=== PATIENT | female | born 1955 | race Caucasian/White ===

== ENCOUNTER 2023-03-04 10:46 | Outpatient (CLI) | payer MEDICARE, BC, SELFPAY | END 2023-03-04 10:47 | disposition home or self-care (01) | PROVIDERS: PCP Family Medicine; Visit Provider Physician Assistant | DX: R10.9 Unspecified abdominal pain (principal); R30.0 Dysuria | CPT/HCPCS: 80076; 83690; 87086 ==

== ENCOUNTER 2024-09-19 08:30 | Outpatient (RCR) | payer MEDICARE, BC, SELFPAY | END 2024-10-21 10:40 | disposition home or self-care (01) | PROVIDERS: PCP Family Medicine; Visit Provider Podiatrist | DX: M25.572 Pain in left ankle and joints of left foot (principal); M76.822 Posterior tibial tendinitis, left leg; Z51.89 Encounter for other specified aftercare; M62.462 Contracture of muscle, left lower leg | CPT/HCPCS: 97110; 97112; 97140; 97162 ==

== ENCOUNTER 2025-09-28 16:56 | Emergency (ER) | payer MEDICARE, BC, SELFPAY ==
--- OUTSIDE RECORDS SUMMARY | 2025-09-28 16:58 | XMS_ITS | Clinical Summary ---
Author Organization [id number] Address [address] [place] [address] Care Team Providers Care Prototype Fabricator Name Role Phone Brooke, Elsy Gold MD Primary Care Provider Allergies No known active allergies Medications MedicationSigDispense QuantityRefillsLast FilledStart DateEnd DateStatus MULTIVITAMIN CAP Take 1 Capsule by mouth once daily.0Active aspirin (ECOTRIN) 81 mg enteric coated tablet Take 1 tablet by mouth once daily with a meal.ctive omega-3 fatty acids-vitamin E (FISH OIL) 1,000 mg cap Take 1 Capsule by mouth once daily.ctive blood-glucose meter (BLOOD GLUCOSE MONITORING) Indications:Type 2 diabetes mellitus without complication, without long-term current use of insulin (HC)Dispense meter, test strips, lancets covered by pt ins. Contour 1 Device 04/20/2017Active lancets (Accu-Chek Multiclix Lancet) Indications:Diabetes mellitus without complication (HC)Dispense item covered by pt ins. E11.9 IDDM type II - Test 1 times/day. 100 Each ctive fluticasone (50 mcg per actuation) nasal solution (FLONASE) Indications:Environmental allergiesInhale 2 Sprays into affected nostril(s) once daily. 48 g 1105Active pen needle (UltiCare Pen Needle) 31 gauge x 5/16 (disposable insulin pen needle) Indications:Type 2 diabetes mellitus without complication, without long-term current use of insulin (HC)For administering insulin at home. 100 Each 5Active blood sugar diagnostic (Contour Next Test Strips) strip Indications:Type 2 diabetes mellitus without complication, without long-term current use of insulin (HC)As directed. TEST 3 TIMES DAILY, high A1C 300 Each 5Active ergocalciferol ((vitamin D2)) 50,000 unit capsule Indications:S/P cervical spinal fusionTake 1 Capsule (50,000 units) by mouth once weekly. 12 Capsule 5Active metFORMIN (GLUCOPHAGE) 500 mg tablet Indications:Type 2 diabetes mellitus without complication, with long-term current use of insulin (HC)Take 2 Tablets (1,000 mg) by mouth two times daily with meals. 360 Tablet 5Active metoprolol tartrate (LOPRESSOR) 50 mg tablet Indications:Essential hypertensionTake 1 Tablet (50 mg) by mouth two times daily. 180 Tablet 5Active simvastatin (ZOCOR) 10 mg tablet Indications:Mixed hyperlipidemiaTake 1 Tablet (10 mg) by mouth once daily in the evening. Wait until they call for this. 90 Tablet 5Active melatonin 10 mg tab Take 10 mg by mouth at bedtime.Active calcium citrate/vitamin D3 (CITRACAL REGULAR ORAL) Take 200 mg by mouth once daily.Active lactobacillus combination no.4 (Probiotic) 3 billion cell cap Take 1 Capsule by mouth once daily.Active magnesium oxide (MAG-OX 400) 400 mg tablet Take 400 mg by mouth once daily.Active acetaminophen (TYLENOL EXTRA STRGTH) 500 mg tablet Indications:Post-op painTake 2 Tablets (1,000 mg) by mouth every 6 hours. Max acetaminophen dose: 4000mg in 24 hrs. 115 Tablet 04/30/2025 12:08 PM CDT5Active pregabalin (LYRICA) 25 mg capsule Indications:Restless leg syndromeTake 1 Capsule (25 mg) by mouth at bedtime. Also takes a 50mg capsule at suppertime - total eveningdose =75 mg 90 Capsule 5Active traMADoL (ULTRAM) 50 mg tablet Indications:Spinal stenosis, lumbar region, without neurogenic claudicationTake 1-2 Tablets (50-100 mg) by mouth every 12 hours if needed for Pain. 60 Tablet 5Active calcium citrate (CITRACAL) 200 mg (950 mg) tablet Take 950 mg by mouth two times daily with meals.5Active CPAP Indications:Obstructive sleep apnea syndromeRESMED CPAP (E0601) machine for home use at pressure: 8 cmw, Choice of mask (A7030 or A7034) w/fullface cushion (A7031) x1/mo, nasal cushion (A7032) x2/mo, or nasal pillows (A7033) x 2/mo; Length ofNeed: 99 months; Frequency of use: Daily 1 Each 5Active pregabalin (LYRICA) 50 mg capsule Indications:Restless leg syndromeTake 50 mg by mouth once daily with evening meal. Also takes a 25 mg Capsule at bedtime (total evening dose = 75 mg) 90 Capsule 5Active lisinopriL (PRINIVIL; ZESTRIL) 40 mg tablet Indications:Essential hypertensionTake 1 Tablet (40 mg) by mouth once daily. 90 Tablet 5Active lisinopril-hydrochlorothiazide 20-12.5 mg tablet (PRINZIDE) Indications:HTN (hypertension)Take 1 Tablet by mouth once daily. 90 Tablet Discontinued(Reorder (E-cancel not sent)) insulin glargine (U-100) (Lantus U-100 Insulin) 100 unit/mL injection Inject 15 units subcutaneous before bedtime. Product desired: IABGNG0709/15/2025 Discontinued(*Med complete/Regimen complete/Level of care change) pregabalin (LYRICA) 50 mg capsule Take 50 mg by mouth once daily with evening meal. Also takes a 25 mg Capsule at bedtime (total evening dose = 75 mg)09/10/2025Discontinued(Reorder (E-cancel not sent)) lisinopril-hydrochlorothiazide 20-12.5 mg tablet (PRINZIDE) Indications:HTN (hypertension)Take 2 Tablets by mouth once daily. 180 Tablet Discontinued(*Allergic/Adverse Rxn/Side Effects) Active Problems ProblemNoted DateDiagnosed DateDM2 (diabetes mellitus, type 2)05/05/2025OSA (obstructive sleep apnea)05/05/20256066Kjuxzpdkmtca46/28/2025S/P cervical spinal kgwcyf6105/05/2025Stenosis of cervical spine with ghgttipjco67/21/2025Paroxysmal evemxqcoxiz22/16/2025Type 2 diabetes mellitus with hyperglycemia, with long-term current use of zbvufub7302/28/2024Essential ccntifzmabpf08/19/2019Routine adult health mcvbxqzegfs44/31/2018 Overview (06/08/2018): Colonoscopy 05/2018 normal biopsy, repeat in 10 years ILENE 12/06/2010 AHI-22, elevated in REM09/18/2017Abnormal vaginal bleeding 08/05/2016Type 2 diabetes mellitus without xwyolstbfefk46/29/2016 Overview (07/18/2025): Diagnosis Code replaced due to regulatory update Mixed truvvlqzglcrok18/24/2009Severe Spinal Stenosis at L4-506 Overview (11/01/2019): She takes Tramadol and her insurance will only allow her to get 28 Tramadol at a time. She typically uses 12 Tramadol per month as of 11/01/2019. Sleep disturbance, ojwzgmilzab25/28/2007nxiety state, bonkvsignmq70/28/2007Type II or unspecified type diabetes mellitus without mention of complication, not stated as lrsrzhdurwiz19/15/2006Paroxysmal supraventricular tachycardia Encounters DateTypeDepartmentCare BbpvUvqszjymqxi53/12/2025Telephone [facility] [address] [place] [address] Neal De Leon MD 09/18/2025 8:30 AM CSTProcedure Only [facility] [address] [place] [address] Yu Cardozo L Ac Rvsgtfyheff37/11/6935Uqjqzu16/09/2025 9:25 AM CSTAncillary Procedure [facility] [address] [place] [phone] 09/16/2025 8:30 AM CSTOffice Visit [facility] [address] [place] [address] Neal De Leon MD Recheck (Low back pain )09/16/2025 8:15 AM CSTAncillary Procedure [facility] [place] [address] [place] [address] 09/16/2025 8:00 AM CSTAncillary Procedure [facility] [address] [place] [phone] 09/16/20250832Ekxaos60/08/2025 9:55 AM CSTOffice Visit [facility] [address] [place] [address] Elsy Cox MD Pre-Op Exam (10/13/2025 Hysteroscopy/D&C [place] Dr. Bety Mahoney); Medication Management (Would likea CGM. Has been taking lantus as needed due to 40 # WT loss her diabetes has improved. Was also wondering about metformin)09/15/2025 Results Follow-Up [facility] [address] [place] [address] Elsy Cox MD 09/14/20259700Bcixec79/24/2025Refill [facility] [address] [place] [address] Ash Wallace MD Refill Request (Pregabalin/)08/28/2025 1:45 PM CSTAncillary Procedure [facility] [address] [place] [address] 08/28/2025 10:00 AM CSTProcedure Only [facility] [address] [place] [address] Yu Cardozo L Ac Khvfdolicjb50/20/2025Telephone [facility] [address] [place] [address] Irene Mahoney MD Results (I spoke with Ely, explained EMB results with benign polyp, pelvic US with EMS 6mm. I recommended D&C hysteroscopy, she is agreeable. )08/28/2025 Fdjhtm4808/23/20258288Sdsazp39/13/2025 2:20 PM CSTOffice Visit [facility] [address] [place] [address] Irene Mahoney MD Consult (postmenopausal bleeding. Hx of ovarian and polyps removal)08/21/2025 Mstxcy2508/15/2025 9:30 AM CSTAncillary Procedure [facility] [address] [place] [address] 08/15/20253149Fxfvng03/06/2025 1:30 PM CSTOffice Visit [facility] [address] [place] [address] Ash Wallace MD Sleep Follow-up08/14/2025Orders Only [facility] Scanner 1 scan: (1-Ord) HOSSEIN , COMPLIANCE REPORT, 5110/14/20248138Kqtplb05/04/2025 Udktbk7008/11/2025 8:30 AM CSTProcedure Only [facility] [address] [place] [address] Yu Cardozo L Ac Mjmdkhyhvft01/03/0575Oqklqa50/01/2348Pxnfpw40/30/4369Qyokpl27/29/2025 9:00 AM CDTProcedure Only [facility] [address] [place] [address] Yu Cardozo L Ac Lkqcshgtjpk64/28/2025 1:30 PM CDTOffice Visit [facility] [address] [place] [phone] Chandana Ordaz PA Post-op (Cervical and injection )08/05/2025 1:15 PM CDTAncillary Procedure [facility] [address] [place] [phone] 08/05/20254376Ehmxwm47/24/6893Cmdgak78/23/9544Rdwxuc32/22/2025 2:10 PM CDTOffice Visit [facility] [address] [place] [address] Monique Lynch MD Derm Problem (Patch)07/30/2025 9:00 AM CDTProcedure Only [facility] [address] [place] [address] Yu Cardozo L Ac Plpwcgdhyjp52/22/4329Bofdaj69/21/1838Drkkkw52/20/0723Xkyawa13/15/2025 8:00 AM CDTProcedure Only [facility] [address] [place] [address] Yu Cardozo L Ac Acupuncture (Initial treatment.)07/23/20250430Xfqewn58/13/2025Orders Only [facility] Scanner 1 scan: (1-Ord) RAYUS, INJ LT TROCHANTERIC BURSA, 510/08/2025Travel 07/04/2025Orders Only [facility] Scanner 1 scan: (1-Ord) RAYUS RADIOLOGY, INJ L1-2 LUMBAR , 07/04/2025from Last 3 Months Immunizations ImmunizationAdministration DatesNext DueAMB INFLUENZA, IIV4 (AGE=>6MOS) MDV (Flu Clinic Only)07/10/2017COVID-19 VACCINE SPIKEVAX (MODERNA 50MCG/0.5ML) 12YO+ PFS 3COVID-19 vaccine (Pfizer-BioNTech 30mcg/0.3mL) PF, MDV12/28/2020, 12/04/2020Influenza A (H1N1), Inactivated (Age >=3 Years)09/25/2009Influenza Virus, Qbrfxpwnzfv06/23/2014,07/18/2013,07/17/2012,07/19/2011,08/11/2009 Influenza, High-dose Rmaqxhoeieu44/09/2025,06/13/2024Influenza, High-dose Quadrivalent Teamlpqxize42/13/2023,07/01/2021Influenza, IIV3 (Age >=3 years) 07/18/2013Influenza, FWA253/,07/15/2016Influenza, IIV4 (=>6mos) MDV 07/18/2019,07/10/2018Influenza, Inactivated AIIV4 (Age 65+ Years) Preserv Free 2Pneumococcal Poly,23-Valent (Pneumovax)2Pneumococcal conj 13- Valent (Prevnar 13)1RSV, Recombinant ADJ Reconstituted (Arexvy 120MCG/0.5mL)06/21/2023Td (Age >=7 Years)03/09/2006Tdap07/04/2022,04/07/2012, 03/09/2006Zoster (Shingrix-RZV, recombinant)05/23/2018,02/05/2018Zoster (Zostavax-ZVL, live)08/19/2014 Family History Medical HistoryRelationNameCommentsHeart DiseaseBrother 1aneurysm, 60 OsteoarthritisBrother 1Cancer-prostateBrother 2OsteoarthritisBrother 2Asthma DaughterCancer-prostateFatherHypertensionFatherOsteoarthritisFatherOsteoporosis FatherStrokeFatherDiabetesMotherHeart failureMotherHypertensionMotherObesity MotherCancer-prostatePaternal GrandfatherCancer-fcixjrLxqvlay7RtvioefkDyebhp ObesitySisterAsthmaSonCancer-ovarianNo Family HistoryRelationNameStatusComments Brother 1Brother 2DaughterFatherDeceasedMaternal GrandfatherDeceasedMaternal GrandmotherDeceasedMotherDeceased (Age 71)CHF, complications diabetesPaternal GrandfatherDeceasedPaternal GrandmotherDeceasedSisterSon Social History Tobacco UseTypesPacks/DayYears UsedDateSmoking Tobacco: FormerCigarettes0.545 09/08/1965 - 09/08/2010Smokeless Tobacco: Never Tobacco Cessation:Counseling Given: Yes Alcohol UseStandard Drinks/WeekCommentsNo0 (1 standard drink = 0.6 oz pure alcohol)PHQ-2AnswerDate RecordedPHQ-2 TOTAL ECMHZ633Social Connections AnswerDate RecordedDo you often feel lonely or isolated from those around you?0 04/28/2025Financial Resource StrainAnswerDate RecordedDifficulty of Paying Living Rsjdbkjq403/11/2025Difficulty of Paying Living ExpensesNot on file 04/18/2025Food InsecurityAnswerDate RecordedDo you worry your food will run out before you are able to buy more?Transportation NeedsAnswerDate RecordedDoes lack of transportation keep you from medical appointments?1 04/28/2025Does lack of transportation keep you from work, meetings or getting things that you need?Housing StabilityAnswerDate RecordedWhat is your housing situation today?Interpersonal SafetyAnswerDate RecordedAre you being hit, kicked, pushed or yelled at (see row info)?No04/28/2025 Interpersonal Safety Abuse 12 - 18Not on file04/28/2025Interpersonal Safety Ambulatory VulnerabilityNot on file04/28/2025UtilitiesAnswerDate RecordedDo you have trouble paying for utilities (for example, heat, electricity, water, phone)?CommentsNoSex and Gender InformationValueDate Recorded Sex Assigned at BirthNot on fileLegal LtwWekvsp42/14/2013 6:31 AM CSTGender IdentityNot on fileSexual OrientationNot on fileOccupationIndustryJob Start Date Job End DateNot on fileNot on fileNot on fileNot on file Obstetrics History GravidaParaTermPretermABIABSABEctopicMultipleLivingLive [id number] OutcomeGATotal LaborLabor/2nd/0cqMaxnmyBvnEsmzFrmzDGALzqO0Y1QldfCbgfSYN4h7c IZQROHUJCDY12/01/4330UzutXMhcIwrxoa09/29/0083VssjUTduNjytpu41/18/1983TermMVag Living Last Filed Vital Signs Vital SignReadingTime TakenCommentsBlood Mxfmhush637/5012 9:59 AM 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 Tqytg5404 9:59 AM LZSRggqgcohejf45.7 ??C (98 ??F)05/06/2025 7:31 AM CDT Respiratory Yyvl301105/06/2025 7:31 AM CDTOxygen Paxwhhftsn112%09/15/2025 9:59 AM CSTInhaled Oxygen Concentration--Sujmqg61.7 kg (169 lb)09/16/2025 12:19 PM 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 Zmghtc761.1 cm (5' 5)09/16/2025 12:19 PM CSTBody Mass Index28.12111/17/2024 12:19 PM 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 Plan of Treatment DateTypeDepartmentCare Team (Latest Contact Info)Dzkgfdnpevf52/30/2025 8:45 AM CSTOrders Only [facility] [address] [place] [address] [place], [place] 10/13/2025 9:27 AM CSTHospital Encounter [address] [address] [place] [address] [address] 10/13/2025 9:27 AM 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 - 10/13/2025 10:26 AM CSTSurgery [address] [address] [place] [address] [address] HYSTEROSCOPY OPERATIVE DILATION AND CUREATTAGE WITH EWRMWCRP75/08/2026 9:30 AM CSTAppointment [facility] [address] [place] [address] Papo Salinas, PT [address] [place] [address] 08/03/2026 2:20 PM CDTOffice Visit [facility] [address] [address] [place] [address] [place] [address] NamePriorityAssociated DiagnosesDate/TimeHYSTEROSCOPY DILATION AND CURETTAGETier 2: within 30 days Postmenopausal bleeding Endometrial polyp 10/13/2025 9:27 AM CSTHealth MaintenanceDue DateLast DoneCommentsCOVID-19 vaccine series (2024- season)/02/2024, 08/16/2023, 07/22/2022, Additional history existsDepression screening for age 12+/, 03/13/2024, 02/28/2024, Additional history existsMedicare Wellness for age 65+ , 02/28/2024, 12/15/2022Mammogram for age 45-75006/19/2026 06/19/2025, 06/19/2024, 06/01/2023, Additional history existsLow Dose CT (for lung CA) age 50-/04/2025, 08/14/2024, 07/26/2023, Additional history existsBMI (ht and wt on same day) for age 18+/06/2025, 08/14/2025, 06/18/2025, Additional history existsColonoscopy through age 75 , 06/07/2018, [facility]17[facility]2010 [facility] Lipids for age 45-, 02/22/2024, 07/04/2022, Additional history existsTetanus , 04/07/2012, 03/09/2006, Additional history existsZoster (shingles) series for age 50+Completed 05/23/2018, 02/05/2018, 08/19/2014DEXA/DXA scan for age 65+Wcjdrvqri29/11/2021, 12/17/2020Hepatitis C screening for age 18-38Pdwyitavl25/17/2022neumococcal series for age 50+Dxxtfqlbm09/17/2022, 01/23/2021RSV vaccine for adults or kntemukgkTxqcaehwa63/13/2023Influenza XnjnbboYhskgfmrl82/09/2025, 06/13/2024, 07/04/2022, Additional history existsHepatitis B series for 19+Aged OutNo longer eligible based on patient's age to complete this topic Goals GoalPatient Goal TypeAssociated ProblemsRecent ProgressPatient-Stated?Author Autogenerated Goal Care PlanAutogenerated ProblemNoTorres, Tejal Montero, [facility] Medical Devices ImplantedTypeAreaManufacturerDevice IdentifierShelf Expiration DateModel / Serial / LotBone Matrix 2.5x5cm Dmitriy Plf [facility] - [id number] Implanted:Qty: 1 on 03/05/2021 by Neal De Leon MD at [employer] N/A: Lumbar VertebraeMedtronic Spine/Ortho02/04/2024T42210 / [id number] / -Description:IMPLANTED ANTERIOR /POSTERIOR L4-5Cage Lmbr [id number] [address] Alif Peek - [id number] Implanted:Qty: 1 on 03/05/2021 by Neal De Leon MD at [employer] N/A: Lumbar WldfcmrehCX-Xdjzz7634-1629 / / -Description:Implanted anterior L3-L56.5x 50 Poly Screw Implanted:Qty: 1 on 03/05/2021 by Neal De Leon MD at [employer] N/A: Lumbar VertebraeGlobus Medical Tcy5443.1650 / / 7.5 X 55 Poly Screw Implanted:Qty: 1 on 03/05/2021 by Neal De Leon MD at [employer] N/A: Lumbar VertebraeGlobus Medical Ini3099.1755 / / 5.5x 75 Ti Pre Bent Krishna Implanted:Qty: 1 on 03/05/2021 by Neal De Leon MD at [employer] N/A: Lumbar VertebraeGlobus Medical Eii2731.5075 / / Creo Locking Screw Implanted:Qty: 2 on 03/05/2021 by Neal De Leon MD at [employer] N/A: Lumbar VertebraeGlobus Medical Rlo0166.0000 / / Cygnus Matrix Amnion Patch Implanted:Qty: 1 on 03/05/2021 by Neal De Leon MD at [employer] N/A: Lumbar VertebraeS-VIVEX BIOLOG[employer] INC/6878WEF298421V / [id number] / 4.5 X 30mm Threaded Facet Screw Cannulated Implanted:Qty: 2 on 03/05/2021 by Neal De Leon MD at [employer] N/A: Lumbar VertebraeDio Medical CorpFT.TC.4530 / / Bone Matrix Lg Infuse Bmp - [id number] Implanted:Qty: 1 on 03/05/2021 by Neal De Leon MD at [employer] N/A: Lumbar VertebraeMedtronic Spine/Ortho05/09/[id number] / / [id number]:IMPLANTED ANTERIOR /POSTERIOR L4-5Gore Preclude Pericardial Membrane Implanted:Qty: 1 on 03/05/2021 by Neal De Leon MD at [employer] N/A: [facility] HospitalW- [id number] / / [id number] 24mm Citadel Plate Implanted:Qty: 2 on 03/05/2021 by Neal De Leon MD at [employer] N/A: Lumbar VertebraeGlobus Medical Apy897.124 / / Description:Implanted anterior L3-S9Qlvqpq 24mm Citadel Screw Implanted:Qty: 2 on 03/05/2021 by Neal De Leon MD at [employer] N/A: Lumbar VertebraeGlobus Medical Fne202.624 / / Description:Implanted anterior L3-L530mm Citadel Screw Globus Implanted:Qty: 2 on 03/05/2021 by Neal De Leon MD at [employer] N/A: Lumbar VertebraeGlobus Medical Fkc924.630 / / Description:Implanted anterior L3-I9Reqfkg 28mm Citadel Screw Implanted:Qty: 2 on 03/05/2021 by Neal De Leon MD at [employer] N/A: Lumbar VertebraeGlobus Medical Juv564.628 / / Description:Implanted anterior L3-G5Jjuyau 26mm Citadel Screw Implanted:Qty: 2 on 03/05/2021 by Neal De Leon MD at [employer] N/A: Lumbar Lqlwapsjm592.626 / / Description:Implanted anterior L3-L5Cage Lmbr 49w33u66uk 4 [address] Sivan Del [place] - [id number] Implanted:Qty: 1 on 03/05/2021 by Neal De Leon MD at [employer] N/A: Lumbar YewkoivkyYP-Odjwb5377-5868 / / -Description:Implanted anterior L3-L54.5 X 25 Mm Threaded Facet Screw Cannulated Implanted:Qty: 1 on 03/09/2021 by Neal De Leon MD at [employer] N/A: Lumbar VertebraeDio Medical CorpFT.TC.4525 / / Odl Spacer, 4mm Angled Implanted:Qty: 1 on 04/28/2025 by Neal De Leon MD at [employer] N/A: Cervical DpmnvqpjhFY-NXG-GBKYWWOBJMDXORM78//[id number] / [id number] / Bone Matrix Sm Infuse Bmp - [id number] Implanted:Qty: 1 on 04/28/2025 by Neal De Leon MD at [employer] N/A: Cervical VertebraeMedtronic Spine/[id number] / / [id number] Matrix 2.5x5cm Dmitriy Plf Dbm - [id number] Implanted:Qty: 1 on 04/28/2025 by Neal De Leon MD at [employer] N/A: Cervical VertebraeMedtronic Spine/Ortho01/13/2028T42210 / [id number] / 6mm Sd Screw Implanted:Qty: 17 on 04/28/2025 by Neal [facility] [employer]: Cervical VertebraeDepuy Zidoff eCommerce Dlqlpzcyy924.136.99 / / Description:Posterior Cervical C4-C7Odl Spacer, 6mm Parellel Implanted:Qty: 1 on 04/28/2025 by Neal De Leon MD at [employer] N/A: Cervical RcdjyzcqeOF-HBQ-SSKMIRKVEZRGDJJ38//[id number] / [id number] / Description:Posterior Cervical C4-C7Odl Spacer, 6mm Parallel Implanted:Qty: 1 on 04/28/2025 by eNal De Leon MD at [employer] N/A: Cervical VpiutakbyDW-LRW-TWTZGXSLPPHICTS61//[id number] / [id number] / Bone Matrix 5cc Stimulan Kit Rapid Cure - [id number] Implanted:Qty: 1 on 04/28/2025 by Neal De Leon MD at [employer] N/A: Cervical VertebraeBiocomposites Ltd10/08/6260928-110 / / [id number] Matrix 2x3cm Viagenex Amnion Allograft - [id number] Implanted:Qty: 1 on 04/28/2025 by Neal De Leon MD at [employer] N/A: Cervical VertebraeCTM Wqqsdgosff42/29/3379HLT014984S / [id number] / Odl Spacer, 6mm Parallel Implanted:Qty: 1 on 04/28/2025 by Neal De Leon MD at [employer] N/A: Cervical CupguywocUM-YPK-QAIFJUEJVEZZNPF62/07/9176251913 / [id number] / 6mm Single Bend Plate Implanted:Qty: 2 on 04/28/2025 by Neal De Leon MD at [employer] N/A: Cervical VertebraeDepuy Synthes Ufszkmmxz906.166 / / Description:Posterior Cervical C4-F2Qruxu 443.176 - [id number] Implanted:Qty: 1 on 04/28/2025 by Neal De Leon MD at [employer] N/A: Cervical VertebraeJ And J Depuy KFQ364.176 / / Description:Posterior Cervical C4-W2Knwnk 443.174 - [id number] Implanted:Qty: 1 on 04/28/2025 by Neal De Leon MD at [employer] N/A: Cervical VertebraeJ And J Depuy LRZ833.174 / / Description:Posterior Cervical C4-E0Etqtw Spinal 3.5x14mm Polyaxial Northstar - [id number] Implanted:Qty: 1 on 04/28/2025 by Neal De Leon MD at [employer] N/A: Cervical [id number] / / Description:Posterior Cervical C4-L4Nsahsabmu Ti Krishna, 3.5mm X 80mm Implanted:Qty: 1 on 04/28/2025 by Neal De Leon MD at [employer] N/A: Cervical VertebraeSeaSpineMULTICARE GOOD SAMARITAN [facility]OSPITAL-[id number] / / Description:Posterior Cervical C4-C7Set Screw Oct Rufinaar - [id number] Implanted:Qty: 4 on 04/28/2025 by Neal De Leon MD at [employer] N/A: Cervical [id number] / / Description:Posterior Cervical C4-G6Hktoir Offset Hook, Right, 6.0mm Implanted:Qty: 1 on 04/28/2025 by Neal De Leon MD at [employer] N/A: Cervical VertebraeSeaSpineMULTICARE GOOD SAMARITAN [facility]PITAL-[id number] / / Description:Posterior Cervical C4-C74mm Sd Screw Implanted:Qty: 3 on 04/28/2025 by Neal De Leon MD at [employer] N/A: Cervical VertebraeDepuy Zidoff eCommerce Gpiuylffo062.134.99 / / Description:Posterior Cervical C4-C78mm Sd Screw Implanted:Qty: 1 on 04/28/2025 by Neal De Leon MD at [employer] N/A: Cervical VertebraeDepuy ByHours.com401.065.99 / / Description:Posterior Cervical C4-C7Poly Screw, 3.5mm X 18mm Implanted:Qty: 2 on 04/28/2025 by Neal De Leon MD at [employer] N/A: [place]ical [place] [id number] / / Description:Posterior C6-T1Bone Matrix Xsm Infuse Bmp - [id number] Implanted:Qty: 1 on 05/05/2025 by Neal De Leon MD at [employer] N/A: Cervical VertebraeMedtronic Spine/[id number] / / [id number] Cage Cerv 46f62s0jy 10 Deg Sosa Acdf Flat Peek - [id number] Implanted:Qty: 1 on 05/05/2025 by Neal De Leon MD at [employer] N/A: Cervical VertebraeDio Medical CorpACF.[id number] / / Description:Anterior C5-S0Klxbap Cage Cerv [id number] 10 Deg [place] Acdf [place] - [id number] Implanted:Qty: 1 on 05/05/2025 by Neal De Leon MD at [employer] N/A: Cervical VertebraeDio Medical CorpACF.[id number] / / Description:Anterior C5-X0Diytdc Cage Cerv [id number] 10 Deg [place] Acdf [place] - [id number] Implanted:Qty: 1 on 05/05/2025 by Neal De Leon MD at [employer] N/A: Cervical VertebraeDio Medical CorpACF.[id number] / / Description:Anterior C5-V1Ebzvmx Matrix Amnion Patch 4x4cm Implanted:Qty: 1 on 05/05/2025 by Neal De Leon MD at [employer] [facility] N/A: Cervical VertebraeS-VIVEX [employer] [id number] / [id number] / Fotis Hyperlordotic Acp - 1-Level 14mm Implanted:Qty: 1 on 05/05/2025 by Neal De Leon MD at [employer] [facility] N/A: Cervical VertebraeDio Medical CorpTPL.PL.0114 / / Fotis Hyperlordotic Acp - 2-Level 32mm Implanted:Qty: 1 on 05/05/2025 by Neal De Leon MD at [employer] N/A: Cervical VertebraeDio Medical CorpTPL.PL.0232 / / Fixed-Angle Screws (Self-Drilling), 4.0x14mm Implanted:Qty: 5 on 05/05/2025 by Neal De Leon MD at [employer] [facility] N/A: Cervical VertebraeDio Medical CorpTP.FDA.4014 / / Fixed-Angle Screws (Self-Drilling), 4.0x16mm Implanted:Qty: 5 on 05/05/2025 by Neal De Leon MD at [employer] [facility] N/A: Cervical VertebraeDio Medical CorpTP.FDA.4016 / / Procedures Procedure NamePriorityDate/TimeAssociated DiagnosisCommentsACUPUNCTURE PLAN OF FVECAlejutn85/11/2025 8:20 AM 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 Other low back pain XR SPINE 1 XATGXcbervb10/09/2025 9:35 AM 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 Lumbar pain XR SPINE CERVICAL 2 YPBPCEarxrvd16/09/2025 8:04 AM 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 Cervical pain XR SPINE LUMBAR MINIMUM 4 EMCWCPduakev32/09/2025 8:04 AM 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 Lumbar pain BASIC METABOLIC CGLBUZqikzfq65/08/2025 10:43 AM 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 Essential hypertension HEMOGLOBIN A1C MONITORING (POCT)Upmfsts2209/15/2025 10:43 AM 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 Type 2 diabetes mellitus without complication, with long-term current use of insulin (HC) US PELVIS COMPLETE PVAbkosrt24/20/2025 1:56 PM 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 Postmenopausal bleeding ACUPUNCTURE PLAN OF PVKISywtexx06/20/2025 9:50 AM 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 Other low back pain PATH TISSUE JOETFkbuqyw85/13/2025 2:40 PM 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 Postmenopausal bleeding AUTOMOTIVE GENERATOR REPAIRER THIN PREP PAP DIAGNOSTIC HDFSVVUiatcea09/13/2025 2:38 PM 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 Postmenopausal bleeding HPV HIGH FABXBpdsgyi88/13/2025 2:38 PM 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 Postmenopausal bleeding CT CHEST SCREENING LOW DOSE WO WIXMIVZNHdvquir09/07/2025 9:38 AM 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 Encounter for screening for lung cancer Former cigarette smoker SCAN-DIAGNOSTIC LWVQXJ2708/14/2025 12:00 AM 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 ACUPUNCTURE PLAN OF QMXTUwsdmsa80/03/2025 8:28 AM 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 Other low back pain ACUPUNCTURE PLAN OF WIOVGscsfih51/29/2025 8:54 AM CDT Other low back pain XR SPINE CERVICAL 2 ZNLTAFyteofc74/28/2025 1:09 PM CDT Cervical pain ACUPUNCTURE PLAN OF KKTLTmbqwzo66/22/2025 8:59 AM CDT Other low back pain SCAN-OPERATIVE/PROCEDURE RDMRWJ5707/21/2025 12:00 AM CDT SCAN-OPERATIVE/PROCEDURE MFIWZD9407/04/2025 12:00 AM CDT XR MAMMO HEATHER BILAT KMAXYPYrvtakl30/11/2025 1:15 PM CDT Visit for screening mammogram LIPID PANEL W REFLEX MEASURED BWYWjurygd91/16/2025 12:48 PM CDT Mixed hyperlipidemia ANTI HCVAdd On10/25/2021 7:32 AM 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 Need for hepatitis C screening test SCAN-BONE DENSITOMETRY DEXA12/17/2020 12:00 AM 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 QSDHGTMKOYF70/30/2018 10:48 AM CDT from Last 3 Months or Most Recently Relevant to Health Maintenance Results * XR SPINE 1 VIEW (09/16/2025 9:35 AM 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)Anatomical RegionLateralityModality Spine, CERVICAL SPINE, THORACIC SPINE, LUMBAR SPINEComputed Radiography Specimen (Source)Anatomical Location / LateralityCollection Method / Volume Collection TimeReceived Time09/16/2025 9:35 AM 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 Impressions 09/16/2025 4:23 PM 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 Crosstable view lumbar spine. Five lumbar segments. Suboptimal technique. Operative changes of anterior plate/body screw and interbody fusion L4-5 and L5-S1 appear uncomplicated. Dorsal instrumentation fusion L4 to the sacrum with obliquely oriented posterior element screw stabilization at L4-5 and L5-S1. Degenerative changes above the instrumentation fusion level with endplate osteophytes and interspace narrowing. Abdominal clips. Posterior element bone grafting. Similar appearance from 09/16/2025 exam at 0755 hours. Narrative 09/16/2025 4:23 PM 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 For Patients: As a result of the 21st Century Cures Act, medical imaging exams and procedure reports are released immediately into your electronic medical record. You may view this report before your referring provider. If you have questions, please contact your health care provider. EXAM: XR SPINE 1 VIEW LOCATION: [facility] DATE: 09/16/2025 INDICATION: Lumbar pain. COMPARISON: 09/16/2025. Procedure Note Yoni Aleman MD - 09/16/2025 For Patients: As a result of the Cures Act, medical imagingexams and procedure reports are released immediately into your electronicmedical record. You may view this report before your referring provider.If you have questions, please contact your health care provider. EXAM: XR SPINE 1 VIEW LOCATION: [facility] DATE: 09/16/2025 INDICATION: Lumbar pain. COMPARISON: 09/16/2025. IMPRESSION: Crosstable view lumbar spine. Five lumbar segments. Suboptimal technique. Operative changes of anterior plate/body screw and interbody fusion L4-5and L5- S1 appear uncomplicated. Dorsal instrumentation fusion L4 to thesacrum with obliquely oriented posterior element screw stabilization atL4-5 and L5-S1. Degenerative changes above the instrumentation fusionlevel with endplate osteophytes and interspace narrowing. Abdominal clips.Posterior element bone grafting. Similar appearance from 09/16/2025 exam [id number] hours. Authorizing ProviderResult TypeResult StatusGlallegheny general hospital Goran De Leon MDGENERAL IMAGINGFinal Result * XR SPINE CERVICAL 2 VIEWS (09/16/2025 8:04 AM 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) Only the most recent of2 resultswithin the time period is included. Anatomical RegionLateralityModalityCERVICAL SPINEComputed RadiographySpecimen (Source)Anatomical Location / LateralityCollection Method / VolumeCollection TimeReceived Time09/16/2025 8:04 AM 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 Impressions 09/16/2025 1:50 PM 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 On the lateral view the patient's earrings obscure evaluation of the C1/C2 level. Postsurgical changes of ACDF at C5-T1 and posterior fusion from C6-T1 laminoplasty at C4, C5, C6, and C7. No hardware complication. The vertebral bodies of the cervical spine had normal stature and alignment. Degenerative disc disc height loss at C4/C5. No prevertebral soft tissue swelling. Soft tissues otherwise unremarkable. Narrative 09/16/2025 1:50 PM 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 For Patients: As a result of the Cures Act, medical imaging exams and procedure reports are released immediately into your electronic medical record. You may view this report before your referring provider. If you have questions, please contact your health care provider. EXAM: XR SPINE CERVICAL 2 VIEWS LOCATION: [facility] DATE: 09/16/2025 INDICATION: Cervical Pain COMPARISON: None. Procedure Note Bharathi Rogers MD - 09/16/2025 For Patients: As a result of the Cures Act, medical imagingexams and procedure reports are released immediately into your electronicmedical record. You may view this report before your referring provider.If you have questions, please contact your health care provider. EXAM: XR SPINE CERVICAL 2 VIEWS LOCATION: [facility] DATE: 09/16/2025 INDICATION: Cervical Pain COMPARISON: None. IMPRESSION: On the lateral view the patient's earrings obscure evaluation of the C1/W2sbzhe. Postsurgical changes of ACDF at C5-T1 and posterior fusion fromC6-T1 laminoplasty at C4, C5, C6, and C7. No hardware complication. Thevertebral bodies of the cervical spine had normal stature and alignment.Degenerative disc disc height loss at C4/C5. No prevertebral soft tissueswelling. Soft tissues otherwise unremarkable. Authorizing ProviderResult TypeResult StatusGllafredito De eLon MDGENERAL IMAGINGFinal Result * XR SPINE LUMBAR MINIMUM 4 VIEWS (09/16/2025 8:04 AM 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)Anatomical Region LateralityModalitySpine, LUMBAR SPINEComputed RadiographySpecimen (Source) Anatomical Location / LateralityCollection Method / VolumeCollection Time Received Time09/16/2025 8:04 AM 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 Impressions 09/16/2025 1:52 PM 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 5 lumbar type vertebral bodies. Postsurgical changes anterior fusion at L4/L5 and L5/S1 and posterior fusion from L4-sacrum on the right. No hardware complication. Dextroconvex scoliosis of the lumbar spine. The vertebral bodies of the lumbar spine otherwise normal stature and alignment. Degenerative disc disease with disc height loss and L1/L2 and L2/L3. Cholecystectomy clips. No dynamic instability. Soft tissues unremarkable. Narrative 09/16/2025 1:52 PM 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 For Patients: As a result of the Cures Act, medical imaging exams and procedure reports are released immediately into your electronic medical record. You may view this report before your referring provider. If you have questions, please contact your health care provider. EXAM: XR SPINE LUMBAR MINIMUM 4 VIEWS LOCATION: [facility] DATE: 09/16/2025 INDICATION: Lumbar Pain COMPARISON: None. Procedure Note Bharathi Rogers MD - 09/16/2025 For Patients: As a result of the Cures Act, medical imagingexams and procedure reports are released immediately into your electronicmedical record. You may view this report before your referring provider.If you have questions, please contact your health care provider. EXAM: XR SPINE LUMBAR MINIMUM 4 VIEWS LOCATION: [facility] DATE: 09/16/2025 INDICATION: Lumbar Pain COMPARISON: None. IMPRESSION: 5 lumbar type vertebral bodies. Postsurgical changes anterior fusion atL4/L5 and L5/S1 and posterior fusion from L4-sacrum on the right. Nohardware complication. Dextroconvex scoliosis of the lumbar spine. Thevertebral bodies of the lumbar spine otherwise normal stature andalignment. Degenerative disc disease with disc height loss and L1/L2 andL2/L3. Cholecystectomy clips. No dynamic instability. Soft tissuesunremarkable. Authorizing ProviderResult TypeResult StatusGlalfredito De Leon MDGENERAL IMAGINGFinal Result * (ABNORMAL) HEMOGLOBIN A1C MONITORING (POCT) (09/15/2025 10:43 AM 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)Component ValueRef RangeTest MethodAnalysis TimePerformed AtPathologist SignaturePOC HEMOGLOBIN A1C6.3(H)<6.0 % OF TOTAL HGB111/16/2024 10:59 AM CSTMESILLA VALLEY HOSPITALComment: Any point of care results exhibiting inconsistency with the patient's clinical status should be repeated using a different testing method. Specimen (Source)Anatomical Location / LateralityCollection Method / Volume Collection TimeReceived TimeBloodBLOOD SPECIMEN / UnknownQuest Collect / Unknown 09/15/2025 10:43 AM CST09/15/2025 10:43 AM 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 Narrative Authorizing ProviderResult TypeResult StatusElsy Cox MDCHEMISTRY Final ResultPerforming OrganizationAddressCity/State/ZIP CodePhone Number [facility] [place] [address] [place] [address], [place] [address] [address], [place] [phone] * (ABNORMAL) BASIC METABOLIC PANEL (09/15/2025 10:43 AM 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)ComponentValueRef RangeTest MethodAnalysis TimePerformed AtPathologist ImyxzbtbaIKKCZH333(L)135 - 146 mmol/L111/17/2024 7:14 AM CSTQUEST DIAGNOSTICSPOTASSIUM4.53.5 - 5.3 mmol/L111/17/2024 7:14 AM CSTQUEST DIAGNOSTICSCARBON JZFPQWR7800 - 32 mmol/L 09/16/2025 7:14 AM CSTQUEST WIHVACCDCXUALSZKEL133(H)65 - 99 mg/dL09/16/2025 7:14 AM CSTQUEST DIAGNOSTICSComment: ? Fasting reference interval For someone without known diabetes, a glucose value >125 mg/dL indicates that they may have diabetes and this should be confirmed with a follow-up test. CALCIUM9.88.6 - 10.4 mg/dL09/16/2025 7:14 AM CSTQUEST DIAGNOSTICSCREATININE0.77 0.50 - 1.05 mg/dL09/16/2025 7:14 AM CSTQUEST DIAGNOSTICSBUN/CREATININE RATIOSEE NOTE:6 - 22 (calc)09/16/2025 7:14 AM CSTQUEST DIAGNOSTICSComment: ?? Not Reported: BUN and Creatinine are within ?? reference range. ? EGFR83> OR = 60 mL/min/1.46y81309/16/2025 7:14 AM CSTQUEST DIAGNOSTICSUREA NITROGEN (BUN)187 - 25 mg/dL09/16/2025 7:14 AM CSTQUEST DIAGNOSTICSELECTROLYTE KXFISOU27 - 17 mmol/L (calc)09/16/2025 7:14 AM CSTQUEST JWWMNTESQKELTWNVTUL48(L) 98 - 110 mmol/L111/17/2024 7:14 AM CSTQUEST DIAGNOSTICSComment:Verified by repeat analysis.Specimen (Source)Anatomical Location / LateralityCollection Method / VolumeCollection TimeReceived TimeBloodBLOOD SPECIMEN / UnknownQuest Collect / Ntnunwm8709/15/2025 10:43 AM CST09/15/2025 10:43 AM 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 Narrative Authorizing ProviderResult TypeResult StatusElsy Cox MDCHEMISTRY Final ResultPerforming OrganizationAddressCity/State/ZIP CodePhone Number [facility] [place] [address] [place] [address], [place] [phone] * US PELVIS COMPLETE TV (08/28/2025 1:56 PM 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)Anatomical RegionLaterality ModalityPelvis, OVARIES, UTERUSUltrasoundSpecimen (Source)Anatomical Location / LateralityCollection Method / VolumeCollection TimeReceived Time08/28/2025 4:02 PM 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 Impressions 08/28/2025 4:02 PM 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 Endometrial thickness 6 millimeters. Uterine fibroids measure 1.5 cm and 1.8 cm. Dictated by Fei Sands MD @ 08/28/2025 4:02:24 PM (Electronically Signed) Narrative 08/28/2025 4:02 PM 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 For Patients: As a result of the Cures Act, medical imaging exams and procedure reports are released immediately into your electronic medical record. You may view this report before your referring provider. If you have questions, please contact your health care provider. CLINICAL HISTORY: Postmenopausal bleeding COMPARISON: 08/03/2020 TECHNIQUE: 2D arias-scale and color Doppler images were acquired of the pelvis using a transvaginal approach. FINDINGS: Midline intramural fibroid measures 13 x 15 x 14 millimeters. Calcified right- sided fibroid measures 18 x 17 x 18 millimeters. Uterus measures 7.7 x 3.7 x 5.0 cm. The endometrial lining measures 6 mmin thickness. The left ovary is absent and the right ovary measures 2.0 x 2.8 x 1.8 cm. The right ovary demonstrates normal arterial and venous blood flow on color Doppler analysis. There are no suspicious fluid collections within the cul-de-sac. Simple right ovarian cyst is present which measures 1.1 cm. Procedure Note Fei Sands MD - 08/28/2025 For Patients: As a result of the Cures Act, medical imagingexams and procedure reports are released immediately into your electronicmedical record. You may view this report before your referring provider.If you have questions, please contact your health care provider. CLINICAL HISTORY: Postmenopausal bleeding COMPARISON: 08/03/2020 TECHNIQUE: 2D arias-scale and color Doppler images were acquired of the pelvis using a transvaginal approach. FINDINGS: Midline intramural fibroid measures 13 x 15 x 14 millimeters. Calcifiedright- sided fibroid measures 18 x 17 x 18 millimeters. Uterus measures 7.7x 3.7 x 5.0 cm. The endometrial lining measures 6 mm in thickness. The left ovary is absent and the right ovary measures 2.0 x 2.8 x 1.8 cm.The right ovary demonstrates normal arterial and venous blood flow oncolor Doppler analysis. There are no suspicious fluid collections withinthe cul-de-sac. Simple right ovarian cyst is present which measures 1.1cm. IMPRESSION: Endometrial thickness 6 millimeters. Uterine fibroids measure 1.5 cm and1.8 cm. Dictated by Fei Sands MD @ 08/28/2025 4:02:24 PM (Electronically Signed) Authorizing ProviderResult TypeResult StatusSara Victor M Mahoney MDUSFinal Result * PATH TISSUE EXAM (08/21/2025 2:40 PM 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)ComponentValueRef RangeTest Method Analysis TimePerformed AtPathologist SignatureCase ReportPathology Report ?Case: [id number] ? Authorizing Provider: ??Irene Mahoney MD ?Collected: ? 08/21/2025 1440 ? [facility] ?Received: ?08/21/2025 1516 ? [facility]ty Clinic ? Pathologist: ? Fei Archibald MD ? Specimen: ?Endometrial Biopsy ? 08/26/2025 1:20 PM [facility] LABORATORYFinal Diagnosis A) ENDOMETRIUM, BIOPSY: 1. Fragments of benign endometrial polyp(s) 2. Background strips of inactive endometrium 3. Negative for atypia and malignancy 08/26/2025 1:20 PM [facility] at 1320 CSTClinical Information Postmenopausal geciolpl86/18/2025 1:20 PM [facility] LABORATORYGross DescriptionA) Received in formalin, labeled with the patient's name and EMB, is a 3 x 1 x 0.1 cm aggregate of pink-arias mucosa admixed with clotted blood and mucous. The specimen is entirely submitted in 1 cassette. [facility] 1:20 PM [facility] Microscopic DescriptionThe final diagnosis is based on microscopic examination of appropriate sections of all specimens.08/26/2025 1:20 PM [facility] LABORATORYAdditional Information Interpreted at [facility] - [address] [address]/26/2025 1:20 PM [facility] LABORATORYSpecimen (Source)Anatomical Location / LateralityCollection Method / VolumeCollection TimeReceived TimeOther (Endometrial Biopsy)Non-Blood / Rzsjlat9808/21/2025 2:40 PM CST08/21/2025 3:16 PM 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 Narrative Authorizing ProviderResult TypeResult StatusSara Victor M Mahoney MD PATHOLOGY/CYTOLOGYFinal ResultPerforming OrganizationAddressCity/State/ZIP Code Phone Number [facility] [address] [place] [address], [place] * AUTOMOTIVE GENERATOR REPAIRER THIN PREP PAP DIAGNOSTIC IMAGED (08/21/2025 2:38 PM 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)ComponentValueRef RangeTest MethodAnalysis TimePerformed AtPathologist SignatureCase Report Gynecologic Cytology Report ? Case: [id number] ? Authorizing Provider: ??Irene Mahoney MD ?Collected: ? 08/21/2025 1438 ? [facility] ?Received: ?08/21/2025 1651 ? [facility]ty Clinic ? First Screen: ?Zulma Perry ? Rescreen: ?Hilda Holley ? Specimen: ?AUTOMOTIVE GENERATOR REPAIRER ThinPrep Vial Diagnostic, Cervical ? 08/27/2025 2:03 PM [facility] INTERPRETATION/RESULTNEGATIVE FOR INTRAEPITHELIAL LESION OR MALIGNANCY (NIL) (none)08/27/2025 2:03 PM [facility] at 1403 CSTSPECIMEN ADEQUACY Satisfactory for evaluation Endocervical component pcijtez6308/27/2025 2:03 PM [facility] LABORATORYHPV REQUESTHPV and PAP08/27/2025 2:03 PM [facility] LABORATORYDate of LMP1/ 2:03 PM [facility]ORATORYLast Pap Date 2:03 PM 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 [facility] LABORATORYLast Pap FrsnibZAX48/19/2025 2:03 PM [facility] LABORATORYAbnormal Pap or [place] Bx in last 5 cqdegSc2008/27/2025 2:03 PM [facility] Menstrual OxqadpOppgrqarbthvlp03/19/2025 2:03 PM [facility] LABORATORYColp Bx Done RbuprYn5708/27/2025 2:03 PM [facility]ORYAdditional InformationNone Given08/27/2025 2:03 PM [facility] LABORATORYComment: Cytology is screened at [facility] - [address], [place] [address] and [facility] - [address], [place] [address] and [facility] - [address], [place] [address] Interpreted at [facility] - [address], [place] [address] Automated DmwwexSvdaoucqbf60/19/2025 2:03 PM [facility] LABORATORYComment:Specimen processed successfully by automated water safety teacher device, ThinPrep Imaging System, [employer]ANCILLARY TESTING GYNHPV Ordered, Please see separate gdnmoj1608/27/2025 2:03 PM [facility]STEN[facility] LABORATORYNoteThe pap test is a screening technique, not a diagnostic procedure. It is used primarily to screen for squamous cancers and precursor lesions. Published studies have shown that it is subject to both false negative and false positive results. The pap test should not be used as the sole means to diagnose or exclude pre-malignant and malignant lesions.08/27/2025 2:03 PM [facility]STGRE[facility]ITALCENTRAL LABORATORYSpecimen (Source)Anatomical Location / LateralityCollection Method / VolumeCollection TimeReceived TimeOther (Cervical) Non-Blood / Nbpzgae1708/21/2025 2:38 PM CST08/21/2025 4:51 PM 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 Narrative Authorizing ProviderResult TypeResult StatusIrene Mahoney MD PATHOLOGY/CYTOLOGYFinal ResultPerforming OrganizationAddressCity/State/ZIP Code Phone Number [facility] [address] [place] [address], * HPV HIGH RISK (08/21/2025 2:38 PM 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)ComponentValueRef RangeTest Method Analysis TimePerformed AtPathologist SignatureTYPE 16NegativeNegative 08/28/2025 5:45 AM [facility]STEN[facility] LABORATORYTYPE 18 NeyeirujPdqwlqpz76/20/2025 5:45 AM [facility]STEN[facility] LABORATORYOTHER HIGH RISK USHMVZjljyszjKkgoeiia55/20/2025 5:45 AM [facility]STEN[facility] LABORATORYSpecimen (Source)Anatomical Location / LateralityCollection Method / VolumeCollection TimeReceived TimeOther (Cervical)Non-Blood / Msrhmvb6408/21/2025 2:38 PM CST08/25/2025 1:10 PM 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 Narrative [facility] - 08/28/2025 5:45 AM 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 HPV types 16, 18, 31, 33, 35, 39, 45, 51, 52, 56, 58, 59, 66 and 68 DNA were undetectable or below the pre-set threshold. Methodology: CaseRails Cam 4800 HPV Test Authorizing ProviderResult TypeResult Kyle Mahoney [facility]. [facility] HOSPITALICROBIOLOGYFinal ResultPerforming OrganizationAddressCity/State/ZIP CodePhone Number [facility] [address] [place] [address] [place] [address], * CT CHEST SCREENING LOW DOSE WO CONTRAST (08/15/2025 9:38 AM 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)Anatomical RegionLateralityModalityComputed TomographySpecimen (Source)Anatomical Location / LateralityCollection Method / VolumeCollection TimeReceived Time Impressions 08/15/2025 12:51 PM 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 Negative for lung cancer screening purposes. LUNG-RADS CATEGORY: 1: Negative. RADIOLOGIST RECOMMENDATION: Continue annual screening, if eligible, with low-dose CT chest in 12 months. Please note that all CT scans at this facility use dose modulation, iterative reconstruction and/or weight-based dosing when appropriate to reduce radiation dose to as low as reasonably achievable. ?? Dictated by: Fei Sands MD @08/15/2025 10:44:55 AM/CRL:karen Narrative 08/15/2025 12:51 PM 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 For Patients: As a result of the Cures Act, medical imaging exams and procedure reports are released immediately into your electronic medical record. ??You may view this report before your referring provider. ?? If you have questions, please contact your health care provider. CT CHEST SCREENING LOW DOSE WITHOUT CONTRAST, 08/15/2025 INDICATION: Lung cancer screening. History of smoking. TECHNIQUE: Low-dose lung cancer screening non-contrast CT chest. Dose reduction techniques were used. COMPARISON: 08/14/2024. FINDINGS: NODULES: None. LUNGS AND PLEURA: Mild subpleural scarring left lower lobe. MEDIASTINUM: Similar appearance of the thyroid gland. No adenopathy. CORONARY ARTERY CALCIFICATION: Mild. LIMITED UPPER ABDOMEN: Gallbladder absent. MUSCULOSKELETAL: Postop changes fusion at the cervicothoracic junction. No acute fracture. Authorizing ProviderResult TypeResult StatusElsy Cox MDCTFinal Result * SCAN-DIAGNOSTIC REPORT (08/14/2025 12:00 AM 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) Narrative Authorizing ProviderResult TypeResult StatusScannerOTHERFinal Result * SCAN-OPERATIVE/PROCEDURE REPORT (07/21/2025 12:00 AM CDT) Narrative Authorizing ProviderResult TypeResult StatusScannerOTHERFinal Result * SCAN-OPERATIVE/PROCEDURE REPORT (07/04/2025 12:00 AM CDT) Narrative Authorizing ProviderResult TypeResult StatusScannerOTHERFinal Result * XR MAMMO HEATHER BILAT SCREEN (06/19/2025 1:15 PM CDT)Anatomical RegionLaterality ModalityBREASTS, Breast Left, Breast RightBilateralMammographySpecimen (Source)Anatomical Location / LateralityCollection Method / VolumeCollection TimeReceived Time Impressions 06/19/2025 3:07 PM CDT There is no radiographic evidence for malignancy. Recommend annual mammograms. MAMMOGRAM ASSESSMENT: ??ACR 1 Negative PATIENTS: You will also receive a letter with your examination results in an easy to read format. ??If you have questions about your results, please contact your referring provider. Narrative 06/19/2025 3:07 PM CDT For Patients: As a result of the Cures Act, medical imaging exams and procedure reports are released immediately into your electronic medical record. You may view this report before your referring provider. If you have questions, please contact your health care provider. XR MAMMO HEATHRE BILAT SCREEN [[id number]] CLINICAL HISTORY: ??This is an asymptomatic 69 y.o. patient. INDICATION FOR EXAM: Mammogram Screening. TECHNIQUE: CC and MLO views were obtained. ??This study was evaluated with the assistance of Computer-Aided Detection. Breast Tomosynthesis was used in interpretation. COMPARISON FILM: Yes 06/19/24 [facility] 06/01/23 [facility] FINDINGS: ??There are scattered areas of fibroglandular density. There are no dominant masses, suspicious micro calcifications or areas of architectural distortion. Authorizing ProviderResult TypeResult StatusElsy Cox MDMAMMOFinal Result * (ABNORMAL) LIPID PANEL W REFLEX MEASURED LDL (04/23/2025 12:48 PM CDT) ComponentValueRef RangeTest MethodAnalysis TimePerformed AtPathologist SignatureCHOLESTEROL, ZIZVW567<200 mg/dLQuest Diagnostics-Quippi DaleHDL YNBGADZEWPS66(L)> OR = 50 mg/dLQuest Diagnostics-Quippi EqtdEPPOSZXUTTWBC526(H) <150 mg/dLQuest Diagnostics-Quippi DaleLDL-ROOFJMUUQKI64vg/dL (calc)[facility]-Quippi DaleComment: Reference range: <100 Desirable range <100 mg/dL for primary prevention; <70 mg/dL for patients with CHD or diabetic patients with > or = 2 CHD risk factors. LDL-C is now calculated using the Valery calculation, which is a validated novel method providing better accuracy than the Friedewald equation in the estimation of LDL-C. Elgin SON et al. ANH. 2013;310(71): 1696-0382 (http://education.Futurelytics/faq/JQW693) CHOL/HDLC RATIO2.8<5.0 (calc)[facility] ToolsJackson Medical CentereNON HDL FMBBFDTCUJR02 <130 mg/dL (calc)Objectworld CommunicationsBethesda HospitaleComment: For patients with diabetes plus 1 major ASCVD risk factor, treating to a non-HDL-C goal of <100 mg/dL (LDL-C of <70 mg/dL) is considered a therapeutic option. Specimen (Source)Anatomical Location / LateralityCollection Method / Volume Collection TimeReceived TimeBloodBLOOD SPECIMEN / Opsoxam1204/23/2025 12:48 PM CDT 04/23/2025 12:48 PM CDT Narrative Authorizing ProviderResult TypeResult StatusElsy Cox MDCHEMISTRY Final ResultPerforming OrganizationAddressCity/State/ZIP CodePhone Number [employer] [facility] [address] [place] [address], [employer] [address] [address] * ANTI HCV (10/25/2021 7:32 AM 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)ComponentValueRef RangeTest MethodAnalysis TimePerformed AtPathologist SignatureHEPATITIS C ANTIBODYNon-Reactive Non-Fkhanvbw19/17/2022 3:01 PM CSTPOPLAR SPRINGS [facility] Comment:Antibodies to HCV not detected; does not exclude the possibility of exposure to HCV.Specimen (Source)Anatomical Location / LateralityCollection Method / VolumeCollection TimeReceived TimeBloodBLOOD SPECIMEN / Unknown Venipuncture / Ngeqsce4810/25/2021 7:32 AM CST10/25/2021 7:41 AM 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 Narrative Authorizing ProviderResult TypeResult StatusKristin Alla Brooke MDSEND OUTS Final ResultPerforming OrganizationAddressCity/State/ZIP CodePhone Number [facility] [address] [place] [address], * SCAN-BONE DENSITOMETRY DEXA (12/17/2020 12:00 AM 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)Anatomical Region LateralityModalityOther Narrative Authorizing ProviderResult TypeResult StatusScannerOTHERFinal Result * COLONOSCOPY (06/07/2018 10:48 AM CDT)Specimen (Source)Anatomical Location / LateralityCollection Method / VolumeCollection TimeReceived Time06/07/2018 10:48 AM CDT Narrative Transcriptions Elgin Camp MD - 06/07/2018 11:58 AM CDT Patient Name: Ely Martinez Procedure Date: 06/07/2018 Gender: Female Date of : 1955 Admit Type: Outpatient Procedure: Colonoscopy Proceduralist: Elgin Camp MD , Radha Marte (Nurse) Indications/Pre-Op Diagnosis: Clinically significant diarrhea ofunexplained origin, Last colonoscopy: May 2010 Medications: Fentanyl 100 micrograms IV, Midazolam 2 mgIV, The level of sedation administered wasmoderate Procedure Description: The patient had risks, benefits and alternatives explained to andgave informed consent. The patient had a stable cardiopulmonary status and judged an adequate candidate for conscious sedation. The [facility] [id number] was passed through the anus and advanced tothe cecum, identified by appendiceal orifice and ileocecal valve. The colonoscopy was performed without difficulty. The patient toleratedthe procedure well. The quality of the bowel preparation was good. The ileocecal valve, appendiceal orifice, and rectum were photographed. Complications: No immediate complications. Estimated Blood Loss & Specimen: Estimated blood loss: none. Specimen collected - Yes and sent to Laboratory Findings: The perianal and digital rectal examinations were normal. Biopsies for histology were taken with a cold forceps from the entire colon for evaluation of microscopic colitis. The entire examined colon appeared normal on direct and retroflexion views. Impressions/Post-Op Diagnosis: - The entire examined colon is normal on direct and retroflexionviews. - Biopsies were taken with a cold forceps from the entire colon for evaluation of microscopic colitis. Recommendation: - Patient has a contact number available for emergencies. The signsand symptoms of potential delayed complications were discussed with the patient. Return to normal activities tomorrow. Written discharge instructions were provided to the patient. - Resume previous diet. - Continue present medications. - Await pathology results. - Repeat colonoscopy in 10 years for screening purposes. Moderate Sedation: Moderate (conscious) sedation was administered by the endoscopy nurse and supervised by the endoscopist. The following parameters were monitored: oxygen saturation, heart rate, respiratory rate, blood pressure, adequacy of pulmonary ventilation and reponse to care. Please refer to the [facility] medical record flowsheets and nursing notes for moderate sedation details. Total physician intraservice time was 21 minutes. Elgin Camp MD 06/07/2018 11:58:46 AM This report has been signed electronically. Note Initiated On: 06/07/2018 10:48 AM Procedure Code(s): --- Professional --- 03250, Colonoscopy, flexible; with biopsy, single or multiple Diagnosis Code(s): --- Professional --- R19.7, Diarrhea, unspecified CPT copyright 2017 [employer]. All rights reserved. The codes documented in this report are preliminary and upon intake manager reviewmay be revised to meet current compliance requirements. Scope In: 11:33:08 AM Scope Withdrawal Time 0 hours 8 minutes 53 seconds Scope Out: 11:51:29 AM Authorizing ProviderResult TypeResult StatusMarcolt Camp MDPROCEDURE ORD Final Result from Last 3 Months or Most Recently Relevant to Health Maintenance Additional Health Concerns Active ProblemsNoted DateDiagnosed DateAutogenerated Fncuzds6809/03/2025 Insurance * Guarantor: Ely Martinez TypeRelation to PatientDate of BirthPhone Billing AddressPersonal/UvjfhyHeia1955 [facility] [place] [address] Advance Directives TypeDate RecordedPatient RepresentativeExplanationHealthcare Directive04/28/2025 8:42 AMHealthcare Bsoyytflb74/29/2016 12:26 PM * Full Code (Latest Code Status on File) Date ActivatedDate InactivatedComments05/05/2025 7:57 AM05/06/2025 4:02 PMQuestion AnswerCommentsCode Status Discussion:* Not Discussed * Full Code Date ActivatedDate InactivatedComments04/28/2025 8:58 AM04/30/2025 4:39 PMQuestion AnswerCommentsCode Status Discussion:* Not Discussed * Full Code Date ActivatedDate InactivatedComments03/05/2021 7:49 AM03/08/2021 5:20 PMQuestion AnswerCommentsCode Status Discussion:* Not Discussed * Full Code Date ActivatedDate PxqykwtvavqNyqrbsiy90/8/2020 6:03 AM09/15/2020 11:27 AM QuestionAnswerCommentsCode Status Discussion:* Not Discussed * Full Code Date ActivatedDate DyeonvsmfucGpkixemg09/29/2016 12:11 PM09/06/2016 7:22 PM Care Teams Team MemberRelationshipSpecialtyStart DateEnd Elsy Cox MD [address] [place] [address] PCP - GeneralFamily Toweogoh00/19/25
--- OUTSIDE RECORDS SUMMARY | 2025-09-28 16:58 | XMS_ITS | Clinical Summary ---
Author Organization [facility] Address [address] [place] [address] Care Team Providers Care Airline Pilot Name Role Phone Neal De Leon MD Primary Care Provider [phone] Social History Tobacco UseTypesPacks/DayYears UsedDateSmoking Tobacco: Never AssessedAdolescent EducationAnswerDate RecordedGetting School Help NeededNot on file07/01/2023 CommentsUnknownSex and Gender InformationValueDate RecordedSex Assigned at BirthNot on fileLegal KytVsjmxw77/10/2021 12:19 PM CSTGender IdentityNot on fileSexual OrientationNot on file Plan of Treatment Not on file Insurance Care Teams Team MemberRelationshipSpecialtyStart DateEnd Date Neal De Leon MD [facility] [address] [place] [address] [phone] PCP - GeneralOrthopaedic Surgery12/16/20
[2025-09-28 16:59] VITALS: BP 135/64; PULSE 87; RESP 18; TEMP 38.2; O2SAT 95; BMI 27.8
--- NOTE | 2025-09-28 17:11 | ED.GENADULT ---
HPI - General Adult General Date Seen: 09/28/25 Chief complaint: Fever Stated complaint: Asthma attack Time Seen by Provider: 09/28/25 17:10 History of Present Illness HPI narrative: 69-year-old female with a history of type 2 diabetes, dyslipidemia, hypertension , PSVT, spinal stenosis in cervical fusion, sleep apnea, And a distant her severe of asthma (but no flare of asthma for several years and not on any long-term controller medications. She does not even have a rescue inhaler anymore). Shepresents to the ER today with concern for fever, cough, now shortness of breath an asthma attack. She apparently has had symptoms for about 2 weeks ago that started with a cold. most notable for nasal congestion. She had been like this for about 10 days or so but then about 3 days ago started to get worse with cough, feeling some chest tightness. Fever up to 100.1. She is not really having much sore throat. Still mild nasal congestion. No abdominal pain. No nausea vomiting. No rash. No chest pain. She recognizes the symptoms and feels like she is developing an asthma attack so came in requesting bronchodilators and corticosteroids.. Related Data Home Medications ?Medication ?Instructions ?Recorded ?Confirmed blood sugar diagnostic (Contour #10 ea 03/04/23 03/04/23 Next Test Strips) fish oil-dha-epa 1 cap PO 03/04/23 03/04/23 fluticasone propionate 50 spray intranasal 03/04/23 03/04/23 mcg/actuation nasal spray,suspension glimepiride 4 mg tablet 4 mg PO DAILY 03/04/23 03/08/23 lancets (Accu-Chek Softclix #100 03/04/23 03/04/23 Lancets) metformin 500 mg tablet 1,000 mg PO BID 03/04/23 09/28/25 metoprolol tartrate 50 mg tablet 50 mg PO BID 03/04/23 09/28/25 tphlxgng-kxpzxzc-hbxw-lutein tablet 1 tab PO DAILY 03/04/23 09/28/25 pen needle, diabetic 31 gauge x #1,200 03/04/23 03/04/23/16 (BD Ultra-Fine Short Pen Needle) simvastatin 10 mg tablet 10 mg PO QPM 03/04/23 09/28/25 tramadol 50 mg tablet 50 mg PO BID PRN 03/04/23 09/28/25 aspirin 81 mg capsule 81 mg PO DAILY 03/08/23 03/08/23 calcium citrate 200 mg PO BID 09/28/25 09/28/25 ergocalciferol (vitamin D2) 1,250 1,250 mcg PO 09/28/25 mcg (50,000 unit) capsule lisinopril 40 mg tablet 40 mg PO DAILY 09/28/25 09/28/25 pregabalin 50 mg capsule 50 mg PO QPM 09/28/25 09/28/25 Previous Rx's ?Medication ?Instructions ?Recorded albuterol sulfate 90 mcg/actuation 2 inh inhalation Q4H PRN #1 ea 09/28/25 breath activated powder inhaler oseltamivir 75 mg capsule (Tamiflu) 75 mg PO BID 5 days #10 caps 09/28/25 prednisone 20 mg tablet 40 mg (2 x 20 mg) PO DAILY #10 tabs 09/28/25 Allergies Allergy/AdvReac Type Severity Reaction Status Date / Time No Known Drug Allergies Allergy Verified 03/08/23 12:23 [facility] Social History Smoking Status: Former smoker Do you use any of these nicotine containing products: None Second hand tobacco smoke exposure: No How often do you have a drink containing alcohol: never AUDIT-C Alcohol total score: 0 Non-prescribed substance use: denies use service: No Exam Narrative: Exam Narrative: Constitutional: Appears well-developed and well-nourished. Alert. Conversant. Non toxic. HENT: Head: Atraumatic. Nose: Nose normal. Tympanic membranes normal bilaterally Mouth/Throat: Oral mucosa is clear and moist. no trismus. Pharynx normal. Tonsils symmetric. No tonsillar enlargement, erythema, or exudate. Eyes: Conjunctivae normal. EOM normal. Pupils equal, round, and reactive to light. No scleral icterus. Neck: wearing a soft collar for her longstanding neck problems.. Neck supple. No tracheal deviation present. Cardiovascular: Normal rate, regular rhythm. No gallop. No friction rub. No murmur heard. Symmetric radial artery pulses Pulmonary/Chest: Effort normal. No stridor. No respiratory distress. . Bilateral expiratory wheezes and a few scattered rhonchi. No definite area of focal consolidation but she is wheezy. . No tenderness. Musculoskeletal: RUE: Normal range of motion. No tenderness. No deformity LUE: Normal range of motion. No tenderness. No deformity RLE: Normal range of motion. No edema. No tenderness. No deformity LLE: Normal range of motion. No edema. No tenderness. No deformity Neurological: Alert and oriented to person, place, and time. Normal strength. CN II-VII intact. No sensory deficit. GCS eye subscore is 4. GCS verbal subscore is 5. GCS motor subscore is 6. Normal coordination Skin: Skin is warm and dry. No rash noted. No pallor. Normal capillary refill. Psychiatric: Normal mood. Normal affect. Polite. Const: Vital Signs, click to edit/add: Vital Signs - 24 hr 09/28/25 16:59 Temperature 100.7 F H Pulse Rate [Pulse Oximeter] 87 Respiratory Rate 18 Blood Pressure [Ri t Upper Arm] 135/64 Pulse Oximetry 95 Oxygen Delivery Me thod Room Air Course Course ED Course: Recheck-patient reports feeling much better after neb. Repeat lung exam still has few scares wheezes but much improved. No respiratory distress. No hypoxia. At this point I do not think she needs to admitted for respiratory monitoring, oxygen, or positive-pressure ventilation. Vital Signs Vital signs: Initial Vital Signs Temperature 100.7 F H 09/28/25 16:59 Temperature Source Temporal Artery Scan 09/28/25 16:59 Pulse Rate 87 09/28/25 16:59 Respiratory Rate 18 09/28/25 16:59 Blood Pressure 135/64 09/28/25 16:59 Blood Pressure Mean 87 09/28/25 16:59 Pulse Oximetry 95 09/28/25 16:59 Oxygen Delivery Method Room Air 09/28/25 16:59 Vital Signs Temperature 100.7 F H 09/28/25 16:59 Pulse Rate 87 09/28/25 16:59 Respiratory Rate 18 09/28/25 16:59 Blood Pressure 135/64 09/28/25 16:59 Pulse Oximetry 95 09/28/25 16:59 Oxygen Delivery Method Room Air 09/28/25 16:59 Temperature 100.7 F H 09/28/25 16:59 Pulse Rate 87 09/28/25 16:59 Respiratory Rate 18 09/28/25 16:59 Blood Pressure 135/64 09/28/25 16:59 Pulse Oximetry 95 09/28/25 16:59 Oxygen Delivery Method Room Air 09/28/25 16:59 Medications Administered Medications: Discontinued Medications Generic Name Dose Route Start Last Admin Trade Name Pablito PRN Reason Stop Dose Admin Albuterol/Ipratropium 1 neb 09/28/25 17:22 09/28/25 17:32 Iprat-Albut 0.5-2.5 Mg/3 Ml Neb IH 09/28/25 17:23 1 neb ONCE ONE Administration Prednisone 60 mg 09/28/25 17:36 09/28/25 17:38 Prednisone 20 Mg Tablet PO 09/28/25 17:37 60 mg ONCE ONE Administration Medical Decision Making MDM Narrative Medical decision making narrative: This patient presents for evaluation of couple of weeks of stuffy nose in your eye symptoms with worsening over the past 3 days with development of cough, shortness of breath, asthma attack, and fever. Broad differential here is considered including viral URI, viral URI leading to asthma exacerbation, also development of superimposed community-acquired pneumonia, also contracted in of a new illness such as influenza which is prevalent in our community currently. Because of clinical pattern we did obtain a chest x-ray and it was fortunately negative for pneumonia. Viral PCR is positive for influenza a, but negative for coronavirus and RSV. Given superimposed asthma will treat her with Tamiflu, although it is difficult to determine when this illness started and she may already be outside the 48 hour window for maximum benefit with Tamiflu. This would fit clinically with the patient's current symptoms of fever, cough, wheezing. She is having wheezing consistent with in as a code exacerbation. She has a known history of asthma but has not had any flares for years. Suspect her current asthma exacerbation is being triggered by her influenza. The patient feels and sounds improved after interventions here in ED. No indication for hospitalization at this time including no hypoxia, no marked increase in respiratory rate, and there are minimal to no retractions. Supportive outpatient management is indicated, medications for discharge noted above. Close followup with primary care physician. Return if increased wheezing, progressive shortness of breath, develops fever greater than 102. Questions answered and patient comfortable with plan. Lab Data Labs: Lab Results 09/28/25 Range/Units 17:11 SARS-CoV-2 (PCR) Negative SARS-CoV-2 (Negative) Influenza Type A (PCR) POSITIVE PCR FLU A A (Negative) Influenza Type B (PCR) Negative PCR FLU B (Negative) RSV (PCR) Negative PCR RSV (Negative) Imaging Data Chest x-ray: Attestation: I have reviewed the pertinent imaging results. My impression: Appears to be rotated, right shoulder forward. I do not see any acute infiltrates. Radiologist's impression: IMPRESSION: No acute cardiac or pulmonary process identified. Discharge Plan Discharge Clinical Impression: Influenza A, Asthma Patient Disposition: Home, Self-Care Condition: Stable Instructions: Asthma (DC), Influenza (ED) Additional Instructions: As we discussed, please use the albuterol 2 puffs every 4 hours if needed to help treat your asthma. If you have worsening shortness of breath or shortness of breath it is not getting better with her inhaler, please come back to the ER right away. Your test is positive for influenza A. Please start on the Tamiflu tomorrow morning to treat this viral infection. Influenza a is contagious. You should stay home until you are starting to feel better overall and and until your fever has been gone (without treatment) for more than 24 hours. If you have worsening symptoms such as high fever, dehydration, weakness confusion, chest pain, or any other problems, please return to the ER right away. Prescriptions: New prednisone 20 mg tablet 40 mg PO DAILY Qty: 10 0RF oseltamivir [Tamiflu] 75 mg capsule 75 mg PO BID 5 Days Qty: 10 0RF albuterol sulfate 90 mcg/actuation aerosol powdr breath activated 2 inh inhalation Q4H PRNQty: 1 0RF No Action fluticasone propionate 50 mcg/actuation spray,suspension intranasal glimepiride 4 mg tablet 4 mg PO DAILY metformin 500 mg tablet 1,000 mg PO BID metoprolol tartrate 50 mg tablet 50 mg PO BID simvastatin 10 mg tablet 10 mg PO QPM tramadol 50 mg tablet 50 mg PO BID PRN (DME) pen needle, diabetic [BD Ultra-Fine Short Pen Needle] 31 gauge x 5/16 needle See Rx Instructions .ROUTE .MEDSUPPLY Qty: 1200 Patient Comments: USE WITH INSULIN AT HOME Rx Instructions: As directed (DME) lancets [Accu-Chek Softclix Lancets] Misc See Rx Instructions .ROUTE DAILY Qty: 100 Rx Instructions: As directed (DME) Contour Next Test Strips Strip See Rx Instructions .ROUTE DAILY Qty: 10 Rx Instructions: As directed fish oil-dha-epa 1 cap PO dfjzntre-ntwvfdm-osmq-lutein Tablet 1 tab PO DAILY aspirin 81 mg capsule 81 mg PO DAILY ergocalciferol (vitamin D2) 1,250 mcg (50,000 unit) capsule 1,250 mcg PO lisinopril 40 mg tablet 40 mg PO DAILY calcium citrate 200 mg (950 mg) tablet 200 mg PO BID pregabalin 50 mg capsule 50 mg PO QPM Follow Up/Referrals: Elsy Cox MD [Primary Care Provider, Family Practice] Stand Alone Forms: [employer] Info Instructions
--- NOTE | 2025-09-28 17:13 | CRLHL7_ITS ---
For Patients: As a result of the Century Cures Act, medical imaging exams and procedure reports are released immediately into your electronic medical record. You may view this report before your referring provider. If you have questions, please contact your health care provider. INDICATION: Cough. Shortness breath. TECHNIQUE: Chest PA and lateral. Comparison : 09/15/2017. FINDINGS: Since the previous examination, extensive hardware has been affixed to the cervical spine. The heart is normal in size. The lungs are clear. The pulmonary vasculature and pleural surfaces appear normal. The bony thorax appears intact. IMPRESSION: No acute cardiac or pulmonary process identified. Dictated by Mainor Clay MD @ 09/28/2025 5:47:14 PM (Electronically Signed)
[2025-09-28] MEDS: IPRAT-ALBUT 0.5-2.5 MG/3 ML NEB 1 NEB IH (17:32)
[2025-09-28 17:45] VITALS: PULSE 83; RESP 16; O2SAT 100
[2025-09-28 18:00] LABS: PCR FLU A POSITIVE PCR FLU A (Negative); PCR FLU B Negative PCR FLU B (Negative); PCR RSV Negative PCR RSV (Negative); SARS PCR* Negative SARS-CoV-2 (Negative)
== END 2025-09-28 19:46 | disposition home or self-care (01) ==
PROVIDERS: Emergency Provider Emergency Medicine; PCP Family Medicine
DX: J10.1 Influenza due to other identified influenza virus with other respiratory manifestations (principal); J45.909 Unspecified asthma, uncomplicated
CPT/HCPCS: 71046; 87631; 94640; 99284; J7512